=== PATIENT | female | born 1970 | race Caucasian/White ===

== ENCOUNTER 2017-10-05 08:36 | Emergency (ER) | payer MEDICAID ==
[~2017-10-05] VITALS: Ht 121.9 cm; Wt 65.8 kg
[2017-10-05 08:48] VITALS: BP_SYST 126
--- NOTE | 2017-10-05 08:54 | NUR ---
Pt placed to ER bed 05, to famwn, report given to MONIKA Yañez.
--- NOTE | 2017-10-05 08:56 | NUR ---
ER at bedside examining patient.
--- NOTE | 2017-10-05 09:10 | NUR ---
Pt complains of cough with green sputum since last night, denies n/v or fever. Pt states coughs so much that her chest hurts. No other injuries/complaints per pt or noted.
[2017-10-05 09:27] LABS: BASOPHILS % (AUTO) 0.3 % (0.0-2.0); EOSINOPHILS % (AUTO) 0.3 % (0.0-4.0); HEMATOCRIT 42.5 % (36-48); HEMOGLOBIN 13.8 g/dL (12.0-16.0); LYMPHOCYTES # (AUTO) 0.7 K/uL (1.0-5.5); LYMPHOCYTES % (AUTO) 11.5 % (20.5-51.5); MEAN CORPUSCULAR HEMOGLOBIN 27 pg (27-31); MEAN CORPUSCULAR HGB CONC 33 % (32-36); MEAN CORPUSCULAR VOLUME 82 fL (79.0-98.0); MONOCYTES # (AUTO) 0.5 K/uL (0.0-1.0); MONOCYTES % (AUTO) 8.3 % (1.7-9.3); NEUTROPHILS # (AUTO) 4.6 K/uL (1.8-7.7); NEUTROPHILS % (AUTO) 79.6 % (40.0-70.0); PLATELET COUNT (AUTO) 244 K/uL (130-430); RED BLOOD CELL COUNT(AUTO) 5.15 MIL/uL (4.2-6.2); RED CELL DISTRIBUTION WIDTH 12.6 % (9.0-15.0); WHITE BLOOD COUNT (AUTO) 5.8 K/uL (4.8-10.8)
[2017-10-05] MEDS: KETOROLAC TROMETHAMINE 15 MG VIAL IVP ONE (09:32)
[2017-10-05] MEDS: NACL 0.9% 1,000 ML IV ONE (09:32)
--- NOTE | 2017-10-05 09:32 | NUR ---
Medication was given to pt, tolerated it well. No noted adverse reaction, will continue to monitor
[2017-10-05 09:34] LABS: CALCIUM 9.3 mg/dL (8.4-11.0); CREATININE 0.64 mg/dL (0.55-1.30); POTASSIUM 3.6 mmol/L (3.5-5.1)
[2017-10-05 09:40] LABS: ALBUMIN 3.7 g/dL (3.4-4.8); TOTAL BILIRUBIN 0.5 mg/dL (0.0-1.0)
--- NOTE | 2017-10-05 09:58 | NUR ---
Pt went to radiology in stable condition
--- NOTE | 2017-10-05 10:06 | NUR ---
Pt returned from radiology in stable condition
[2017-10-05 10:40] VITALS: BP_SYST 130
--- NOTE | 2017-10-05 10:40 | NUR ---
Patient given written and verbal discharge instructions and verbalizes understanding. ER MD discussed with patient the results and treatment provided. Patient in stable condition. ID arm band removed. IV catheter removed intact and dressing applied, no active bleeding. Rx of Ibuprofen and Amantadine given. Patient educated on pain management and to follow up with PMD. Pain Scale 2/10. Opportunity for questions provided and answered.
== END 2017-10-05 10:40 | disposition home or self-care (01) ==
LOC: SED 08:36
DX: J09.X2 Influenza due to identified novel influenza A virus with other respiratory manifestations (principal); E11.9 Type 2 diabetes mellitus without complications; Z88.0 Allergy status to penicillin
CPT/HCPCS: 36415; 71046; 80053; 85025; 86710; 96361; 96374; 99285; J1885; J7030

== ENCOUNTER 2017-10-08 13:43 | Emergency (ER) | payer MEDICAID ==
[~2017-10-08] VITALS: Ht 147.3 cm; Wt 65.8 kg
[2017-10-08 13:53] VITALS: BP_SYST 134
--- NOTE | 2017-10-08 14:05 | NUR ---
Pt placed to ER bed 03, to gown. Pt report received from MONIKA Coronel. Pt c/o non-productive cough with Right neck pain radiating down right arm x 5 days.
--- NOTE | 2017-10-08 14:15 | NUR ---
Cecelia Beverly NP at bedside to assess pt.
[2017-10-08] MEDS: KETOROLAC TROMETHAMINE 60 MG/2 ML VIAL IM ONE (14:37)
[2017-10-08] MEDS: IPRATROPIUM/ALBUTEROL SULFATE 3 ML AMPUL.NEB INH ONE (15:04)
--- NOTE | 2017-10-08 15:05 | NUR ---
Pt moved to ER bed 04. No needs verbalized at this time.
[2017-10-08 15:35] VITALS: BP_SYST 115
--- NOTE | 2017-10-08 15:35 | NUR ---
Patient given written and verbal discharge instructions and verbalizes understanding. ER MD discussed with patient the results and treatment provided. Patient in stable condition. ID arm band removed. IV catheter removed intact and dressing applied, no active bleeding. Rx of Promethazine VC with codeine, Tessalon Perles, and Albuterol. Patient educated on pain management and to follow up with PMD. Pain Scale 3/10. Opportunity for questions provided and answered.
== END 2017-10-08 15:35 | disposition home or self-care (01) ==
LOC: SED 13:43
DX: B34.9 Viral infection, unspecified (principal); R03.0 Elevated blood-pressure reading, without diagnosis of hypertension; E11.9 Type 2 diabetes mellitus without complications; E78.5 Hyperlipidemia, unspecified; Z88.0 Allergy status to penicillin; Z90.89 Acquired absence of other organs
CPT/HCPCS: 71045; 81025; 82962; 94640; 96372; 99283; J1885